=== PATIENT | female | born 1995 | race Two or more races ===

== ENCOUNTER 2016-08-31 23:04 | Emergency (ER) | payer BC ==
[~2016-08-31] VITALS: Ht 162.6 cm; Wt 94.3 kg
--- NOTE | 2016-08-31 23:14 | NUR ---
BB [id number] FROM HOME. C/O LOW BACK PAIN S/P TRIP DOWN 4 STAIRS. DENIES LOC. DENIES HEAD OR NECK PAIN. PT AOX4 RR EVEN AND UNLABORED. NO SOB NOTED NAD NOTED. NO NVD AT THIS TIME. PT GOWNED AND PLACED ON MONITOR WAITING FOR MD ABRAMS.
--- NOTE | 2016-08-31 23:20 | NUR ---
DR. AVERY AT BEDSIDE FOR EVAL
[2016-08-31] MEDS ORDERED: IBUPROFEN 400 MG TABLET ONE (23:28)
[2016-08-31] MEDS ORDERED: IBUPROFEN 400 MG TABLET PO ONE (23:30)
--- NOTE | 2016-08-31 23:45 | NUR ---
PT TO RADIOLOGY FOR XRAYS
--- NOTE | 2016-09-01 01:37 | NUR ---
Patient discharged to home in stable condition. Written and verbal after care instructions given. Patient verbalizes understanding of instruction. ambulatory with a steady gait
[2016-09-01 01:38] VITALS: BP 138/78
== END 2016-09-01 01:39 | disposition home or self-care (01) ==
LOC: ER 23:08
DX: S50.02XA Contusion of left elbow, initial encounter (principal); M54.5 Low back pain; W10.9XXA Fall (on) (from) unspecified stairs and steps, initial encounter; Y93.89 Activity, other specified; Y92.89 Other specified places as the place of occurrence of the external cause; Y99.8 Other external cause status
CPT/HCPCS: 72110; 73080; 99284; A4606; Z7610